=== PATIENT | female | born 1985 | race Caucasian/White ===

== ENCOUNTER 2023-09-15 07:29 | Emergency (ER) | payer OTHER, SELFPAY ==
[2023-09-15 07:30] VITALS: BMI 29.8
[2023-09-15 07:41] VITALS: BP 145/89
--- NOTE | 2023-09-15 08:04 | ED.GENMED ---
History of Present Illness
General
Chief Complaint: Chest Pain
Source: patient and records
Exam Limitations: none
Time Seen by Provider: 09/15/23 07:50
Nursing documentation reviewed up to this point in time: agreed with
Travel History
Have you had any contact with someone who has COVID-19?: No
Do you have any symptoms of coronavirus? Fever > 100 degrees, chills, cough, shortness of breath, sore throat, loss of taste or smell, muscle aches, or headache?: No
History of Present Illness
History of Present Illness:
Patient is a 38-year-old female who states that while making coffee this morning she developed severe left chest pain going through the back and mildly into the neck. Patient states she woke up fine. Patient was concerned that she was having a
panic attack as she has a history of anxiety and depression. Patient states initially it hurt to breathe and felt short of breath although that is better now. Patient's heart was racing and she had nausea without vomiting. This also seemed to
clear up. Patient denies any recent injuries or illnesses. Patient denies fever or chills, nasal congestion. Patient has minimal coughing. Patient has no previous history of similar episodes. Patient denies history of PE or DVT. Patient denies
any risk factors other than oral contraception pills. Patient denies smoking, diabetes or hypertension. Patient's cholesterol is borderline high. Patient's maternal grandmother did have a history of a heart attack and patient's mother has A-fib.
Patient denies any recent hair, weight or skin changes.
Past History
Past History
ED Past Medical History: Psychiatric (Anxiety/depression) and Other (Removal of wisdom teeth); Negative HTN, IDDM or NIDDM
Social History
Tobacco: Former smoker
Alcohol: None
Family History
Family History: CAD
Review of Systems
Review of Systems
All Other Systems: ROS reviewed and negative except as documented in HPI and ROS
Constitutional: Reports no symptoms
EENT: Reports no symptoms
Respiratory: Reports cough and trouble breathing; Denies hemoptysis
Cardiac: Reports chest pain and palpitations; Denies diaphoresis or syncope
ABD/GI: Reports nausea; Denies abdominal pain, vomiting, diarrhea or constipated
: Reports no symptoms
Musculoskeletal: Reports no symptoms
Skin: Reports no symptoms
Neurological: Reports no symptoms
Hematologic/Lymphatic: Reports no symptoms
Psychiatric: Reports anxiety
Phy Exam
Physical Exam
Physical Exam:
Physical Exam
General: mild distress, alert and appropriate, well nourished, well hydrated
HENT: Normocephalic, supple with no lymphadenopathy, no thyromegaly
Eyes: Clear sclera, conjuctiva without injection
Heart: Regular rhythm and rate. No S3, S4. No murmur. No NVD, bruit
Lungs: No respiratory distress, no stridor, lung sounds clear and equal bilaterally, chest wall symmetrical and nontender
Abdomen: Soft, nontender, no organomegaly, no CVA tenderness, BS good
Neuro: Alert and oriented x 3, CN II - XII intact, no motor focality, no cerebellar dysfunction
Skin: no rash
Psychiatric: well kept. interactive and cooperative. Mildly anxious
Extremities: No edema, cyanosis, tenderness, Good and equal peripheral pulses.
Scores
Heart Failure Risk
Heart Failure Risk Score: Not Applicable
Heart Score for Chest Pain Patients
STEMI patient?: Not applicable
Withdrawal Assessment of Alcohol
Withdrawal Assessment Completed?: Not applicable
Course
Orders/Labs/Results
Orders:
Orders
09/15/23 07:32
EKG [Electrocardiogram (*1)] Urgent
Reason for Study: Chest Pain
09/15/23 07:33
EKG- Treatment ONCE
09/15/23 08:02
Ketorolac [Toradol] 15 mg IV NOW STA
09/15/23 08:27
Complete Blood Count/With Diff Urgent
Comprehensive Metabolic Panel Urgent
D-Dimer Urgent
Troponin I Urgent
Abnormal Lab Results
09/15/23
08:27
RBC 3.96 L 10^6/uL
(4.20-5.40)
Hgb 11.9 L g/dL
(12.0-16.0)
Hct 34.2 L %
(37.0-47.0)
Chloride 108 H mmol/L
(98-107)
09/15/23 08:27
09/15/23 08:27
Vital Signs
Initial and Last Documented VS:
Initial Vital Signs
Temp Pulse Resp BP Pulse Ox
98.0 F 115 16 145/89 98
09/15/23 07:41 09/15/23 07:41 09/15/23 07:41 09/15/23 07:41 09/15/23 07:41
Last Documented Vital Signs
Temp Pulse Resp BP Pulse Ox
98.0 F 85 14 118/70 96
09/15/23 07:41 09/15/23 10:30 09/15/23 10:30 09/15/23 10:00 09/15/23 10:30
*Radiology
Radiology exam reviewed: other
*Pulse Oximetry
Patient hypoxic: no
*EKG
Interpreted by ED Provider?: Yes
EKG Intrepretation Date: 09/15/23
EKG Intrepretation Time: 08:08
Interpretation: normal
Comparison EKG: no comparison EKG present
Heart Rate: 105
Rate: tachycardiac
Rhythm: sinus
Parnell: normal axis
Interval: normal interval
QRS Pattern: normal QRS
Ischemia: no ischemia
*Critical Care Note
Total Time (30-74mins, 75-104mins- exclusive of procedures): Not Applicable
Update Note
Update Note:
Patient feeling better at this time. Will discharge the patient follow-up unsure the etiology of the patient's chest pain. Could be as she suggested anxiety
ED Attending Note
-
Portions of this chart may have been created with voice recognition software.� Occasional wrong word or��sound alike� substitutions may have occurred due to the inherent limitations of voice recognition software.
Discharge Plan
Departure
Patient Disposition: Home (Routine Discharge)
Date of Disposition: 09/15/23
Time of Disposition: 11:10
Patient with high blood pressure during this ER visit?: No
Condition: Good
Covid-19: Not Applicable
Discharge Problem:
Non-cardiac chest pain
Instructions: Chest Pain That Is Not Caused by the Heart (DC)
Prescriptions:
No Action
norgestimate-ethinyl estradiol [Tri Femynor] 1 EACH tablet
1 tab PO DAILY
Referrals:
UNKNOWN - PT DOES,NOT KNOW [Family Provider] -
Activity Restrictions/Additional Instructions:
Continue present medications and follow-up with your family physician as necessary.
Interventions
Interventions:
*Risk Screen - Suicide Last Done: 09/15/23 07:41
*General Assessment Last Done: 09/15/23 09:01
*Neglect/Abuse Screening Last Done: 09/15/23 09:01
*ED COVID-19 Vaccine History Last Done: 09/15/23 07:41
ED- Cardiac Assessment Last Done: 09/15/23 09:01
[2023-09-15] MEDS: TORADOL 15 MG IV (08:31)
[2023-09-15 08:32] LABS: % Basophils 1.1 % (0-2); % Eosinophils 2.1 % (0-6); % Immature Granulocytes 0.3 % (0-0.5); % Lymphocytes 26.3 % (20.5-51.1); % Monocytes 8.1 % (1.7-9.3); % Neutrophils 62.1 % (42.2-75.2); Absolute Basophils 0.1 10^3/uL (0-0.2); Absolute Eosinophils 0.1 10^3/uL (0-0.7); Absolute Lymphocytes 1.7 10^3/uL (1.2-3.4); Absolute Monocytes 0.5 10^3/uL (0.1-0.6); Absolute Neutrophils 3.9 10^3/uL (1.4-6.5); Hematocrit 34.2 % (37.0-47.0); Hemoglobin 11.9 g/dL (12.0-16.0); Mean Corp Hgb Conc. 34.8 g/dL (33.0-37.0); Mean Corpuscular Hgb 30.1 pg (27.0-31.0); Mean Corpuscular Volume 86.4 fL (81.0-99.0); Nucleated Red Blood Cells % 0 %; Platelet Count 257 10^3/uL (130-400); Red Blood Cell Count 3.96 10^6/uL (4.20-5.40); Red Cell Dist. Width 12.4 % (11.5-14.5); White Blood Cell Count 6.3 10^3/uL (4.8-10.8)
[2023-09-15 08:45] LABS: D-Dimer < 0.27 ug/mlFEU (0.00-0.50)
[2023-09-15 08:47] LABS: ALT (SGPT) 22 U/L (0-35); AST (SGOT) 22 U/L (14-36); Albumin 3.9 g/dl (3.5-5.0); Alkaline Phosphatase 96 U/L (38-126); Blood Urea Nitrogen 12 mg/dl (7-17); Carbon Dioxide 25 mmol/L (22-30); Chloride 108 mmol/L (98-107); Estimated Creatinine Clearance 111 ml/min; Glucose 95 mg/dl (70-99); Sodium 136 mmol/L (135-145); Total Bilirubin 0.6 mg/dl (0.2-1.3); Total Protein 6.4 g/dl (6.3-8.2); eGFR > 60.00
[2023-09-15 08:57] LABS: Troponin I < 0.012 ng/ml
[2023-09-15 09:00] VITALS: BP 117/66
[2023-09-15 10:00] VITALS: BP 118/70
[2023-09-15 11:15] VITALS: BP 125/79
== END 2023-09-15 11:15 | disposition home or self-care (01) ==
LOC: EMR 07:29
PROVIDERS: EMERGENCY PHYSICIAN Emergency Medicine
DX: R07.89 Other chest pain (principal); R06.02 Shortness of breath; R05.9 Cough, unspecified; R11.0 Nausea; F41.9 Anxiety disorder, unspecified; Z87.891 Personal history of nicotine dependence; Z82.49 Family history of ischemic heart disease and other diseases of the circulatory system
CPT/HCPCS: 99284; 96374; 80053; 84484; 85025; 85379; 93005